=== PATIENT | male | born 1995 | race Caucasian/White ===

== ENCOUNTER → 2020-05-04 14:01 | Outpatient (CLI) | payer OTHER, MEDICAID, SELFPAY | PROVIDERS: Family Provider Family Medicine; PCP Family Medicine; Visit Provider Nurse Practitioner | DX: K62.89 Other specified diseases of anus and rectum (principal) | CPT/HCPCS: 87070; 87075; 87077; 87147; 87186; 87205 ==

== ENCOUNTER → 2020-06-06 15:21 | Outpatient (CLI) | payer OTHER, MEDICAID, SELFPAY ==
[2020-06-08 06:03] LABS: COVID19 Sendout Not Detected (Not Detect)
== END ==
PROVIDERS: Family Provider Family Medicine; PCP Family Medicine; Visit Provider Physician Assistant
DX: Z01.812 Encounter for preprocedural laboratory examination (principal)
CPT/HCPCS: 87635

== ENCOUNTER 2020-06-09 06:32 | Day surgery (SDC) | payer OTHER, MEDICAID, SELFPAY ==
[2020-06-05 10:34] VITALS: BMI 25.0
[2020-06-09] VITALS (10 sets, daily range): BP systolic 110–144; BP diastolic 51–110; PULSE 66–84; RESP 1–20; TEMP 36.4–36.7; O2SAT 97–100; BMI 25.0
--- NOTE | 2020-06-09 | PATH_ITS ---
[facility] Accession Number: [id number] . 01 Material submitted: . body - PILONIDAL CYST . 01 Diagnosis: Skin, Pilonidal Cyst, Excision: Squamous-lined sinus tract with dermal fibrosis, mixed inflammation, and free hair shafts, consistent with clinical impression of pilonidal cyst. MRV 06/12/2020 1247 Local . 01 Electronically signed: . Jhon Barraza MD, Dermatopathologist NPI- [id number] . 01 Gross description: . Received in formalin, labeled pilonidal cyst, and consists of a 2.5 x 1.0 cm irregular melton skin excised to a depth of 1.1 cm. There is a 1.5 cm in length x 0.1 cm in diameter linear hemorrhagic lesion within the center of the specimen. The margin is inked blue. The specimen is serially sectioned and entirely submitted. . A1: tips. A2-A3: central cross-sections. ([id number]) /MRV 06/10/2020 1316 Local . 01 Pathologist provided ICD-10: L05.91 . 01 CPT . 502453 Performed at: [address] [facility], [place], [place] [id number] MD Terry Taylor MD Phone: [phone]
[2020-06-09] MEDS: LACTATED RINGERS 1,000 ML 100 ML IV (07:18)
--- NOTE | 2020-06-09 07:24 | SUR.OPER ---
Prone on padded OR bed, head in foam head support, gel chest rolls, gel pad under knees, pillow under lower legs, toes free of pressure, arms secured on padded arm boards at <90 degrees abduction. Safety belt at thigh.
--- NOTE | 2020-06-09 07:39 | PM.PREOP ---
Pre-operative Note COVID-19 COVID-19 status: Negative Interval Note History & Physical reviewed/Exam performed by Physician: Yes Changes to H&P: No
[2020-06-09] MEDS: CLINDAMYCIN 900 MG/50 ML PIGGYBACK 50 MG IV (07:45)
[2020-06-09] MEDS: BUPIVACAINE 0.25% (PF) VIAL 30 ML INJ (08:09)
--- NOTE | 2020-06-09 08:30 | PM.OP.1 ---
Operative Date/Time/Diagnoses Date of procedure: 06/09/20 Time of procedure: 08:30 Pre-op diagnosis: Pilonidal cyst Post-op diagnosis: same Procedure & Clinicians Procedure: Excision of complex pilonidal cyst Same procedure as scheduled: Yes Indications: 25-year-old male with a symptomatic pilonidal cyst here for elective excision Surgeon: Evin Swenson Yes if Unassisted: Yes Anesthesia Type: General Operative Notes Findings: Complex pilonidal cyst Specimen(s): other (Pilonidal cyst) Estimated Blood Loss (mL): 20 Procedure in detail: Patient was right to the operating room and bilateral lower extremity compression devices were applied. General anesthesia was induced and he was intubated with a endotracheal tube. He was then placed into the prone position. 2 g of Ancef were given prior to skin incision. He was then prepped and draped in the usual sterile fashion. A time-out was performed ensure the correct patient procedure necessary equipment within the operating room. 0.25% bupivicaine was injected into the skin. An elliptical incision was made around the multiple pits of the pilonidal cyst. Pilonidal cyst did not appear to be actively infective and it was excised in its entirety off of the sacral fascia. There was hair within the base of the cyst which was removed with the specimen. Wound was hemostatic was irrigated. The wound was then packed with single piece of gauze dressing. Patient tolerated procedure well was returned to supine position extubated and transferred to the postoperative care unit in stable condition. Complications: none Post-operative Condition: stable Disposition: same day surgery
--- NOTE | 2020-06-09 08:35 | SUR.PHASEI ---
Bedside report given to EMLISA Arce. Transferred care of pt to MELISA Arce.
== END 2020-06-09 09:28 | disposition home or self-care (01) ==
PROVIDERS: Family Provider Family Medicine; PCP Family Medicine; Referring Provider Surgery; Visit Provider Surgery
PROC: (CPT 11770; principal; 2020-06-09 07:45)
DX: L05.91 Pilonidal cyst without abscess (principal)
CPT/HCPCS: 11770; J0330; J1100; J1885; J2250; J2405; J2704; J3010

== ENCOUNTER → 2020-07-26 12:58 | Outpatient (CLI) | payer OTHER, MEDICAID, SELFPAY | PROVIDERS: Family Provider Family Medicine; PCP Family Medicine; Visit Provider Physician Assistant | DX: T14.8XXA Other injury of unspecified body region, initial encounter (principal) | CPT/HCPCS: 87070; 87075; 87077; 87147; 87186; 87205 ==